=== PATIENT | male | born 2000 | race Caucasian/White ===

== ENCOUNTER 2020-08-17 09:41 | Emergency (ER) | payer MEDICAID ==
[~2020-08-17] VITALS: Ht 167.6 cm; Wt 59.0 kg
[2020-08-17 09:51] VITALS: BP_SYST 137
[2020-08-17] MEDS ORDERED: IBUP-1969 PO (10:21)
[2020-08-17 10:46] VITALS: BP_SYST 137
== END 2020-08-17 10:46 | disposition home or self-care (01) ==
LOC: SED 09:41
DX: S93.402A Sprain of unspecified ligament of left ankle, initial encounter (principal); Z79.899 Other long term (current) drug therapy; X50.1XXA Overexertion from prolonged static or awkward postures, initial encounter; Y93.89 Activity, other specified; Y92.89 Other specified places as the place of occurrence of the external cause; Y99.8 Other external cause status
CPT/HCPCS: 99283